=== PATIENT | female | born 1940 | race Caucasian/White ===

== ENCOUNTER 2016-09-08 08:02 | Outpatient (CLI) ==
--- NOTE | 2016-09-08 09:16 | DEXA ---
EXAM: Bone density HISTORY: Postmenopausal female with family history of osteoporosis COMPARISON: Bone density 05/08/2011 TECHNIQUE: Digital images of the thoracolumbar spine and hips were provided and calculation of bone density was obtained. FINDINGS: Digital images demonstrate no compression deformities of the thoracolumbar spine. DEXA scan of the lumbar spine is of good quality. The total BMD equals 1.160 grams per square centimeter. (Prior 1.173) T-score is - 0.2 with a Z-score of 1.5.. DEXA of the hips was performed and of good quality. Total bone marrow density of 0.810 grams per square centimeter. (Prior 0.86) T score is - 1.6 and Z-score of 0.2. IMPRESSION: Bone density of the hips and lumbar spine demonstrate osteopenia of the hips by WHO cri teria with mild overall decrease in bone density. T score greater than -1 is normal T score -1 to -2.5 is osteopenia T score less than - 2.5 is osteoporosis
--- NOTE | 2016-09-09 11:48 | MAMMO ---
EXAM: Bilateral digital screening mammogram History: Screening Comparison: Bilateral mammogram 09/02/2015 Findings: MLO and CC views of bilateral breasts demonstrate heterogeneously dense breast parenchyma which can obscure small lesions. Stable benign bilateral breast calcifications. There are no linda nant masses, no suspicious microcalcifications and no architectural distortions. Biopsy clip again seen within the right breast. Impression: Benign stable mammogram. Recommend followup routine screening mammography in 1 year. BIRADS 2
== END 2016-09-08 08:03 | disposition home or self-care (01) ==
LOC: RAD 08:02
PROVIDERS: ATTEND Family Medicine
DX: Z12.31 Encounter for screening mammogram for malignant neoplasm of breast (principal); Z78.0 Asymptomatic menopausal state

== ENCOUNTER 2017-09-09 10:28 | Outpatient (CLI) | payer OTHER ==
--- NOTE | 2017-09-10 08:56 | MAMMO ---
EXAM: Bilateral digital screening mammogram (2-D and 3-D) History: Screening Comparison: Bilateral mammogram 09/08/2016 Findings: MLO and CC views of bilateral breasts demonstrate heterogeneously dense breast parenchyma which can obscure small lesions. CAD was reviewed by the radiologist. Tomosynthesis was performed. Biopsy clip again seen within the right breast. Stable benign bilateral breast calcifications. Ther e are no dominant masses, no suspicious microcalcifications and no architectural distortions Impression: Benign stable mammogram. Recommend followup routine screening mammography in 1 year. BIRADS 2
== END 2017-09-09 10:29 | disposition home or self-care (01) ==
LOC: RAD 10:28
PROVIDERS: ATTEND Family Medicine
DX: Z12.31 Encounter for screening mammogram for malignant neoplasm of breast (principal)
CPT/HCPCS: 77067

== ENCOUNTER 2018-09-12 09:02 | Outpatient (CLI) ==
--- NOTE | 2018-09-12 10:05 | DEXA ---
EXAM: Bone densitometry. History: Bone disorder, osteopenia. Findings: Evaluation of the lumbar spine reveals a total bone mineral density of 1.244 grams per centimeter squ ared with T-score of 0.5. Evaluation of the left hip reveals a total bone mineral density of 0.820 grams per centimeter squared with T-score of negative 1.5. Evaluation of the right hip reveals a total bone mineral density of 0.8338 grams per centimeter squar ed with T-score of negative 1.4. FRAX: 10-year probability for major osteoporotic fracture is 29.8% and 19.3% for hip fracture. Impression: 1. Normal bone mineral density of the lumbar spine. 2. Osteopenia of bilateral hips
--- NOTE | 2018-09-12 10:34 | MAMMO ---
EXAM: Bilateral digital screening mammogram (2-D and 3-D) History: Screening Comparison: Bilateral mammogram 09/09/2017 Findings: MLO and CC views of bilateral breasts demonstrate heterogeneously dense breast parenchyma which can obscure small lesions. CAD was reviewed by the radiologist. Tomosynthesis was performed. Biopsy clip again seen within the right breast. Stable benign bilateral breast calcifications. The re are no dominant masses, no suspicious microcalcifications and no architectural distortions Impression: Benign stable mammogram. Recommend followup routine screening mammography in 1 year. BIRADS 2, benign
== END 2018-09-12 09:03 | disposition home or self-care (01) ==
LOC: RAD 09:02
PROVIDERS: ATTEND Family Medicine
DX: Z12.31 Encounter for screening mammogram for malignant neoplasm of breast (principal); Z78.0 Asymptomatic menopausal state; M85.9 Disorder of bone density and structure, unspecified